=== PATIENT | female | born 1990 | race Caucasian/White ===

== ENCOUNTER 2018-03-15 17:31 | Emergency (ER) | payer BC ==
[2018-03-15 18:27] VITALS: BP 146/95
--- NOTE | 2018-03-15 19:11 | UC ---
Ear Complaint HPI - HPI Summary HPI Summary: Pt presents with c/o left ear pain and drainage X 3-4 days. - History of Current Complaint Chief Complaint: UCEar Stated Complaint: LT EAR COMPLAINT Time Seen by Provider: 03/15/18 19:02 Hx Obtained From: Patient Hx Last Menstrual Period: unknown ?: No Onset/Duration: Gradual Onset, Lasting Days, Still Present Severity Initially: Mild Severity Currently: Moderate Pain Intensity: 8 Associated Signs/Symptoms: Positive: URI Symptoms - Allergies/Home Medications Allergies/Adverse Reactions: Allergies Allergy/AdvReac Type Severity Reaction Status Date / Time No Known Allergies Allergy Verified 03/15/18 18:22 Home Medications: Home Medications Ibuprofen TAB* [Motrin TAB* 800 MG] 1,000 mg PO ONCE 03/15/18 [History Confirmed 03/15/18] PMH/Surg Hx/FS Hx/Imm Hx Previously Healthy: Yes - Surgical History Surgical History: Yes Surgery Procedure, Year, and Place: breast reduction 05/2017 - Family History Known Family History: Positive: Cardiac Disease - Social History Occupation: Employed Full-time Lives: With Family Alcohol Use: Rare Substance Use Type: None Smoking Status (MU): Never Smoked Tobacco Have You Smoked in the Last Year: No Review of Systems All Other Systems Reviewed And Are Negative: Yes Constitutional: Positive: Negative Skin: Positive: Negative Eyes: Positive: Negative ENT: Positive: Ear Ache Respiratory: Positive: Negative Cardiovascular: Positive: Negative Gastrointestinal: Positive: Negative Genitourinary: Positive: Negative Motor: Positive: Negative Neurovascular: Positive: Negative Musculoskeletal: Positive: Negative Neurological: Positive: Negative Psychological: Positive: Negative Is Patient Immunocompromised?: No Physical Exam Triage Information Reviewed: Yes Appearance: Well-Appearing Vital Signs: Initial Vital Signs Temp 97.8 F 03/15/18 18:21 Pulse 95 03/15/18 18:21 Resp 16 03/15/18 18:21 BP 146/95 03/15/18 18:21 Pulse Ox 100 03/15/18 18:21 Vital Signs Reviewed: Yes Eye Exam: Normal ENT: Positive: Other - left outer ear canal swelling, with creamy yellow discharge, left TM perforated. Dental Exam: Normal Neck exam: Normal Respiratory Exam: Normal Respiratory: Positive: No respiratory distress Musculoskeletal Exam: Normal Neurological Exam: Normal Psychological Exam: Normal Skin Exam: Normal Ear Complaint Course/Dx - Differential Dx/Diagnosis Differential Diagnosis/HQI/PQRI: Otitis Externa, Perforated TM Provider Diagnosis: Left otitis externa, Perforated left tympanic membrane on examination Discharge - Sign-Out/Discharge Documenting (check all that apply): Patient Departure All imaging exams completed and their final reports reviewed: No Studies - Discharge Plan Condition: Stable Disposition: HOME Prescriptions: Amoxicillin PO (*) [Amoxicillin 500 MG CAP*] 500 mg PO Q12H #20 cap Hydrocortisone/Acetic Acid [Hydrocortisone/Acetic Aci] 2 drop OT Q12H 7 Days #1 bottle Patient Education Materials: Otitis Externa (ED), Ruptured Eardrum (ED) Referrals: Nayeli Guerrero MD [Primary Care Provider] - If Needed - Billing Disposition and Condition Condition: STABLE Disposition: Home
== END 2018-03-15 19:21 | disposition home or self-care (01) ==
LOC: UCCORT 17:31
DX: H60.92 Unspecified otitis externa, left ear (principal); H72.92 Unspecified perforation of tympanic membrane, left ear
CPT/HCPCS: 99202; G0463